=== PATIENT | female | born 1950 | race Caucasian/White ===

== ENCOUNTER 2023-11-04 08:39 | Emergency (ER) | payer MEDICARE, OTHER ==
[2023-11-04 09:17] VITALS: BP 148/85; O2SAT 100
--- NOTE | 2023-11-04 10:00 | ED Physician Documentation ---
PD HPI HEENT - Stated complaint Stated Complaint: BILAT EAR PX, BALANCE ISSUES - Chief complaint Chief Complaint: Heent - History obtained from History obtained from: Patient - History of Present Illness Timing - onset: How many days ago Timing - details: Gradual onset, Still present Location: Right ear (ear pain and fullness, decreased to now absent hearing. Left ear mild decrease in hearing as well.) Associated symptoms: No: Fever, Congestion, Headache Similar symptoms before: Diagnosis (earwax impaction) Recently seen: Not recently seen Review of Systems Constitutional: denies: Fever, Chills Nose: denies: Rhinorrhea / runny nose, Congestion Throat: denies: Sore throat Respiratory: denies: Cough PD PAST MEDICAL HISTORY - Past Medical History Past Medical History: Yes Cardiovascular: Hypertension Endocrine/Autoimmune: Type 2 diabetes - Past Surgical History Past Surgical History: Yes General: EGD Ortho: Other - Present Medications Home Medications: Ambulatory Orders Medication Instructions Recorded Confirmed Ciproflox/Dexameth Otic Drops 4 drops RIGHTEAR BID 6 Days #7.5 ml 11/04/23 [Ciprodex Otic Drops] - Allergies Allergies/Adverse Reactions: Allergies Allergy/AdvReac Type Severity Reaction Status Date / Time amoxicillin Allergy Hives Verified 11/04/23 09:10 - Social History Does the pt smoke?: No Smoking Status: Never smoker Does the pt drink ETOH?: No Does the pt have substance abuse?: No - Immunizations Immunizations are current?: Yes - POLST Patient has POLST: No PD ED PE NORMAL - Vitals Vital signs reviewed: Yes - General General: Alert and oriented X 3, No acute distress, Well developed/nourished - HEENT HEENT: No: Ears normal (left TM and canl are okay. Mild wax in canal. She had done drops at home so had cleaned it herself reasonably. Right with was impaction.) Results - Vitals Vitals: Oxygen O2 Source Room air PD Medical Decision Making - ED course Complexity details: considered differential (right canal wax impaction. Pain is wonderment so eval after wax removed by nursing and there is considerable redness, exudate in medial canal. TM looks okay.), d/w patient Departure - Departure Disposition: 01 Home, Self Care Clinical Impression: Otitis externa, Cerumen impaction Condition: Stable Record reviewed to determine appropriate education?: Yes Instructions: ED Otitis Externa Prescriptions: Ciproflox/Dexameth Otic Drops [Ciprodex Otic Drops] 4 drops RIGHTEAR BID 6 Days #7.5 ml Comments: The ear canal does look very red and inflamed with some exudate/purulence that was trapped behind the earwax. Earwax itself could have been irritating and had increased moisture retention behind it leading to some tissue breakdown and therefore inflammation and/or infection. Sometimes there is an infection that initiates the process and causes increased earwax. In either event, the earwax is out and I would suggest using some antibiotic/anti-inflammatory eardrops twice a day for the next several days. Tylenol ibuprofen if needed for pains. I sent your prescription to your preferred pharmacy. Forms: PCP List Discharge Date/Time: 11/04/23 12:14
== END 2023-11-04 12:14 | disposition home or self-care (01) ==
LOC: ED 08:39
DX: H61.23 Impacted cerumen, bilateral (principal); H60.91 Unspecified otitis externa, right ear
CPT/HCPCS: 99282; 99283